=== PATIENT | female | born 1965 | race Caucasian/White ===

== ENCOUNTER → 2016-04-30 | Outpatient (CLI) | payer OTHER ==
[~2016-04-30] MED LIST: ASPIRIN325 MG PO; ASPIRIN81 MG PO; B-121000 MCG PO; BUTALB-ACETAMI1 EAC1 PO; CLARITIN10 M2 PO; DALIRESP500 MCG PO; ELAVIL 50 MG TA50 MG PO; ESTRADIOL2 MG PO; FERROUS SULFAT325 M1 PO; FISH OIL 10001000 MG PO; FLEXERIL 10 MG10 MG PO; FLOMAX 0.4 MG0.4 MG PO; HALDOL 1 MG TAB1 MG PO; HYDROXYZINE HCL25 MG PO; IPRAT-ALBUT 0.5-3 ML INH; LEVAQUIN500 MG PO; LIPITOR40 MG PO; LORTAB 7.5-3251 EACH PO; MIRTAZAPINE15 MG PO; NEURONTIN 300300 MG PO; NORCO 5-325 TA1 EACH PO; OMEPRAZOLE20 MG PO; PERFOROMIS20 MCG/2 M INH; PREDNISONE 10 M10 MG PO; PROZAC40 MG PO; SPIRONOLACTONE25 MG PO; THEOPHYLLINE600 MG PO; TOPAMAX50 MG PO; TRAZODONE HCL300 MG PO; TYLENOL W/CODEIN1 E1 PO; VENTOLIN HFA 66.7 GM INH; VERAPAMIL ER P100 MG PO
[2016-04-30 18:22] LABS: HEMOGLOBIN 10.5 gm/dl (12.3-15.3); RED BLOOD COUNT 4.12 M/UL (4.00-5.10); WHITE BLOOD COUNT 8.6 K/UL (4.5-11.0)
[2016-04-30 18:39] LABS: BUN/CREATININE RATIO 9 (0-10)
== END ==
LOC: LAB 17:35
PROVIDERS: Internal Medicine Nephrology
DX: D50.9 Iron deficiency anemia, unspecified (principal); G62.9 Polyneuropathy, unspecified; R80.9 Proteinuria, unspecified
CPT/HCPCS: 36415; 80053; 82043; 82570; 82607; 82728; 83540; 83550; 85027

== ENCOUNTER → 2016-05-31 | Outpatient (CLI) | payer OTHER ==
[2016-05-31 20:52] LABS: HEMOGLOBIN 9.7 gm/dl (12.3-15.3); RED BLOOD COUNT 4.02 M/UL (4.00-5.10); WHITE BLOOD COUNT 12.6 K/UL (4.5-11.0)
== END ==
LOC: LAB 20:26
PROVIDERS: Internal Medicine Nephrology
DX: M51.36 Other intervertebral disc degeneration, lumbar region (principal); D50.9 Iron deficiency anemia, unspecified
CPT/HCPCS: 36415; 80307; 82728; 83540; 83550; 85025

== ENCOUNTER → 2016-06-08 | Outpatient (CLI) | payer OTHER | LOC: OPSV 13:48 | DX: D50.0 Iron deficiency anemia secondary to blood loss (chronic) (principal); R53.83 Other fatigue | CPT/HCPCS: 96365; 96366; J1756; J7050 ==

== ENCOUNTER → 2016-06-15 | Outpatient (CLI) | payer OTHER | LOC: OPSV 13:38 | DX: D50.9 Iron deficiency anemia, unspecified (principal); R53.83 Other fatigue; D50.0 Iron deficiency anemia secondary to blood loss (chronic) | CPT/HCPCS: 96365; 96366; J1756; J7050 ==

== ENCOUNTER → 2016-06-22 | Outpatient (CLI) | payer OTHER | LOC: OPSV 13:45 | DX: D50.0 Iron deficiency anemia secondary to blood loss (chronic) (principal); R53.83 Other fatigue | CPT/HCPCS: 96365; 96366; J1756; J7050 ==

== ENCOUNTER → 2016-06-30 | Outpatient (CLI) | payer OTHER ==
[2016-06-30 18:16] LABS: HEMOGLOBIN 10.6 gm/dl (12.3-15.3); RED BLOOD COUNT 4.2 M/UL (4.00-5.10); WHITE BLOOD COUNT 8.6 K/UL (4.5-11.0)
== END ==
LOC: LAB 18:00
PROVIDERS: Internal Medicine Nephrology
DX: D50.0 Iron deficiency anemia secondary to blood loss (chronic) (principal)
CPT/HCPCS: 36415; 82728; 83540; 83550; 85025; 85027

== ENCOUNTER → 2016-07-06 | Outpatient (CLI) | payer OTHER ==
[2016-07-06 14:28] LABS: BUN/CREATININE RATIO 6 (0-10)
== END ==
LOC: CT 12:00
PROVIDERS: Internal Medicine Nephrology
DX: R27.8 Other lack of coordination (principal); I65.23 Occlusion and stenosis of bilateral carotid arteries
CPT/HCPCS: 36415; 70470; 80048; 93880; J7050; Q9966

== ENCOUNTER 2016-07-20 15:04 | Emergency (ER) | payer OTHER ==
[~2016-07-20 15:04] MED LIST changes: -ASPIRIN81 MG PO; -B-121000 MCG PO; -FISH OIL 10001000 MG PO; -NORCO 5-325 TA1 EACH PO; -SPIRONOLACTONE25 MG PO; -TYLENOL W/CODEIN1 E1 PO; -VERAPAMIL ER P100 MG PO
== END 2016-07-20 16:35 | disposition home or self-care (01) ==
LOC: ER1 15:04
DX: S80.02XA Contusion of left knee, initial encounter (principal); Z87.891 Personal history of nicotine dependence; W18.39XA Other fall on same level, initial encounter; Y92.009 Unspecified place in unspecified non-institutional (private) residence as the place of occurrence of the external cause
CPT/HCPCS: 73564; 73590; 73610; 99283

== ENCOUNTER → 2016-08-05 | Outpatient (CLI) | payer OTHER ==
[~2016-08-05] MED LIST changes: +ASPIRIN81 MG PO; +B-121000 MCG PO; +FISH OIL 10001000 MG PO; +NORCO 5-325 TA1 EACH PO; +SPIRONOLACTONE25 MG PO; +TYLENOL W/CODEIN1 E1 PO; +VERAPAMIL ER P100 MG PO
[2016-08-05 18:54] LABS: HEMOGLOBIN 13.9 gm/dl (12.3-15.3); RED BLOOD COUNT 5.16 M/UL (4.00-5.10); WHITE BLOOD COUNT 8.9 K/UL (4.5-11.0)
[2016-08-05 19:22] LABS: BUN/CREATININE RATIO 6 (0-10)
== END ==
LOC: LAB 18:31
PROVIDERS: Internal Medicine Nephrology
DX: G62.9 Polyneuropathy, unspecified (principal); I65.22 Occlusion and stenosis of left carotid artery; R80.9 Proteinuria, unspecified; D50.0 Iron deficiency anemia secondary to blood loss (chronic)
CPT/HCPCS: 36415; 80053; 80061; 82607; 82728; 83540; 83550; 84443; 85027

== ENCOUNTER 2016-08-12 11:11 | Observation (INO) | payer OTHER ==
[~2016-08-12] VITALS: Ht 160 cm; Wt 75.3 kg
[~2016-08-12 11:11] MED LIST changes: -ASPIRIN81 MG PO; -B-121000 MCG PO; -FISH OIL 10001000 MG PO; -NORCO 5-325 TA1 EACH PO; -SPIRONOLACTONE25 MG PO; -TYLENOL W/CODEIN1 E1 PO; -VERAPAMIL ER P100 MG PO
[2016-08-12 11:40] LABS: HEMOGLOBIN 13.2 gm/dl (12.3-15.3); RED BLOOD COUNT 4.95 M/UL (4.00-5.10)
[2016-08-12 12:17] LABS: BUN/CREATININE RATIO 10 (0-10)
[2016-08-12] MEDS ORDERED: DALIRESP500 MCG PO (18:57)
[2016-08-12] MEDS ORDERED: TYLENOL W/CODEIN1 E1 PO (18:59)
[2016-08-12] MEDS ORDERED: VERAPAMIL ER P100 MG PO (19:00)
[2016-08-12] MEDS ORDERED: SPIRONOLACTONE25 MG PO (19:01)
[2016-08-12] MEDS ORDERED: B-121000 MCG PO (19:05)
[2016-08-12] MEDS ORDERED: ASPIRIN81 MG PO (19:06)
[2016-08-13 06:33] LABS: RED BLOOD COUNT 4.89 M/UL (4.00-5.10)
[2016-08-13 06:36] LABS: WHITE BLOOD COUNT 12.7 K/UL (4.5-11.0)
[2016-08-13 06:42] LABS: BUN/CREATININE RATIO 10 (0-10)
[2016-08-13] MEDS ORDERED: FISH OIL 10001000 MG PO (20:45)
[2016-08-13] MEDS ORDERED: NORCO 5-325 TA1 EACH PO (20:55)
== END 2016-08-13 22:00 | disposition home or self-care (01) ==
LOC: ER1 11:11 → ZEROF 13:10 → M/S 13:10
PROVIDERS: Physician Assistant; ADMIT Internal Medicine
DX: R07.9 Chest pain, unspecified (principal); J44.9 Chronic obstructive pulmonary disease, unspecified; I10 Essential (primary) hypertension; K21.9 Gastro-esophageal reflux disease without esophagitis; E78.5 Hyperlipidemia, unspecified; G89.4 Chronic pain syndrome; G47.00 Insomnia, unspecified; J96.11 Chronic respiratory failure with hypoxia; J96.12 Chronic respiratory failure with hypercapnia; Z85.43 Personal history of malignant neoplasm of ovary; Z90.49 Acquired absence of other specified parts of digestive tract; Z90.710 Acquired absence of both cervix and uterus; Z87.442 Personal history of urinary calculi; Z87.891 Personal history of nicotine dependence; Z79.82 Long term (current) use of aspirin; Z79.899 Other long term (current) drug therapy
CPT/HCPCS: ECHO; 36415; 71010; 78452; 80053; 80061; 82248; 82550; 82553; 83874; 84484; 85025; 85379; 93005; 93017; 93306; 94640; 94664; 96372; 96374; 96375; 99285; A9502; G0378; J1650; J2270; J2405; J2785; J2930; Q0177

== ENCOUNTER 2016-11-18 17:19 | Emergency (ER) | payer OTHER ==
[~2016-11-18 17:19] MED LIST changes: +ASPIRIN81 MG PO; +B-121000 MCG PO; +FISH OIL 10001000 MG PO; +NORCO 5-325 TA1 EACH PO; +SPIRONOLACTONE25 MG PO; +TYLENOL W/CODEIN1 E1 PO; +VERAPAMIL ER P100 MG PO
[2016-11-18 19:33] LABS: HEMOGLOBIN 13.4 gm/dl (12.3-15.3); RED BLOOD COUNT 4.74 M/UL (4.00-5.10); WHITE BLOOD COUNT 8.5 K/UL (4.5-11.0)
[2016-11-18 19:47] LABS: BUN/CREATININE RATIO 8 (0-10)
== END 2016-11-18 22:45 | disposition home or self-care (01) ==
LOC: ER1 17:19
PROVIDERS: Emergency Medicine
DX: J44.1 Chronic obstructive pulmonary disease with (acute) exacerbation (principal); I10 Essential (primary) hypertension; E78.5 Hyperlipidemia, unspecified; Z87.891 Personal history of nicotine dependence; Z79.82 Long term (current) use of aspirin; Z79.899 Other long term (current) drug therapy
CPT/HCPCS: 36415; 71020; 80053; 82800; 83880; 84484; 85025; 93005; 96374; 99285; J2920